=== PATIENT | male | born 1950 | race Two or more races ===

== ENCOUNTER 2016-12-22 08:35 | Day surgery (SDC) | payer MEDICARE, BC ==
[~2016-12-22] VITALS: Ht 165.1 cm; Wt 68.1 kg
[2016-12-22] VITALS (9 sets, daily range): BP systolic 92–146; BP diastolic 57–85
[~2016-12-22 08:35] MED LIST: ATORVASTATIN CA10 MG ORAL; LR 1000ml 1,000 ML IVLG SCH; MAALOX ADVANCE770 ML PO
[2016-12-22] MEDS ORDERED: SINEMET 25/1001 EA ORAL (09:18)
--- NOTE | 2016-12-22 09:38 | Short Stay Surgery H&P ---
History of Present Illness History of Present Illness Chief Complaint Abdominal pains and GERDS and screening colon HPI Michael Charles is a 66 year old male who was admitted on for Abdominal Pain/ screening colon Patient History Allergies: Coded Allergies: No Known Allergies (Unverified , 12/22/16) PAST MEDICAL HISTORY: (1) Hyperlipidemia (2) Colon polyp (3) Hemorrhoid Past Surgeries: Social History: Medication History Scheduled Atorvastatin Calcium* (Lipitor*), 10 MG ORAL BEDTIME, (Reported) Levodopa/Carbidopa (Carbidopa-Levodopa 25-100 Tab), 1 TAB ORAL DAILY, (Reported) Discontinued Medications Mag Hydrox/Al Hydrox/Simeth (Maalox Advanced Suspension), 770 ML PO, (Reported) Discontinued Reason: Pt stopped taking med Review of Systems Cardiovascular: Reports: no symptoms Respiratory: Reports: no symptoms Skeletal: Reports: no symptoms Gastrointestinal: Reports: gastro esophageal reflux disease Genitourinary: Reports: no symptoms Neurologic: Reports: other Endocrine: Reports: no symptoms Hematologic: Reports: no symptoms Physical Exam Vital Signs Last Vital Signs Date Time Temp Pulse Resp B/P (MAP) Pulse Ox O2 Delivery O2 Flow Rate FiO2 12/22/16 09:13 98.2 74 17 146/83 98 Room Air Skin: normal HENT: normal Heart: normal Lungs: normal Abdomen: abnormal Extremities: normal Genitourinary: normal Plan Plan of Care Upper and lower GI endoscopies Preop Interventions None. Summary of Findings See the reports Final Diagnosis: Attestation Are the patient's medical conditions optimized for surgery? Attestation Response: yes JETT PAYTON Dec 22, 2016 09:38
--- NOTE | 2016-12-22 09:39 | Pre-Procedure Note/Attestation ---
Pre-Procedure Note/Attestation Complete Prior to Procedure Planned Procedure: left Procedure Narrative: Endoscopic examination of the upper and lower GI tract Indications for Procedure Pre-Operative Diagnosis: R/O Colon cancer-polyps/Gastritis/peptic ulcer Attestation I attest that I discussed the nature of the procedure; its benefits; risks and complications; and alternatives (and the risks and benefits of such alternatives ), prior to the procedure, with the patient (or the patient's legal ambulatory services representative). I attest that, if there was a reasonable possibility of needing a blood transfusion, the patient (or the patient's legal ambulatory services representative) was given the [place] Department [facility] Services standardized written summary, pursuant to the [place] Blood Safety Act ([place] Health and Safety Code # 1645, as amended). I attest that I re-evaluated the patient just prior to the surgery and that there has been no change in the patient's H&P, except as documented below: TATA,SAID Dec 22, 2016 09:39
--- NOTE | 2016-12-22 09:39 | Pre-Procedure Note/Attestation ---
Pre-Procedure Note/Attestation Complete Prior to Procedure Planned Procedure: left Procedure Narrative: Endoscopic examination of the upper and lower GI tract Indications for Procedure Pre-Operative Diagnosis: R/O Colon cancer-polyps/Gastritis/peptic ulcer Attestation I attest that I discussed the nature of the procedure; its benefits; risks and complications; and alternatives (and the risks and benefits of such alternatives ), prior to the procedure, with the patient (or the patient's legal corporate representative). I attest that, if there was a reasonable possibility of needing a blood transfusion, the patient (or the patient's legal corporate representative) was given the [place] Department [facility] standardized written summary, pursuant to the [place] Blood Safety Act ([place] Health and Safety Code # 1645, as amended). I attest that I re-evaluated the patient just prior to the surgery and that there has been no change in the patient's H&P, except as documented below: TATA,SAID Dec 22, 2016 09:39
--- NOTE | 2016-12-22 09:39 | Pre-Procedure Note/Attestation ---
Pre-Procedure Note/Attestation Complete Prior to Procedure Planned Procedure: left Procedure Narrative: Endoscopic examination of the upper and lower GI tract Indications for Procedure Pre-Operative Diagnosis: R/O Colon cancer-polyps/Gastritis/peptic ulcer Attestation I attest that I discussed the nature of the procedure; its benefits; risks and complications; and alternatives (and the risks and benefits of such alternatives ), prior to the procedure, with the patient (or the patient's legal product support sales representative). I attest that, if there was a reasonable possibility of needing a blood transfusion, the patient (or the patient's legal product support sales representative) was given the [place] [facility] standardized written summary, pursuant to the [place] Blood Safety Act ([place] Health and Safety Code # 1645, as amended). I attest that I re-evaluated the patient just prior to the surgery and that there has been no change in the patient's H&P, except as documented below: TATA,SAID Dec 22, 2016 09:39
[2016-12-22] MEDS ORDERED: LR 1000ml 1,000 ML IVLG SCH (09:41)
[2016-12-22] MEDS ORDERED: Norco 7.5mg/325mg tab ORAL PRN (09:45)
[2016-12-22] MEDS ORDERED: Atropine Inj 1mg/10ml Syr IV PRN (09:45)
[2016-12-22] MEDS ORDERED: Ketorolac 30mg Inj IV PRN (09:45)
[2016-12-22] MEDS ORDERED: LORazepam Inj 2mg/ml 1ml IV PRN (09:45)
[2016-12-22] MEDS ORDERED: Ketorolac 60mg Inj IV PRN (09:45)
[2016-12-22] MEDS ORDERED: Hydromorphone 0.5mg/0.5ml inj IVP PRN (09:45)
[2016-12-22] MEDS ORDERED: DiphenhydrAMINE 50mg/ml Inj IVP PRN (09:45)
[2016-12-22] MEDS ORDERED: oxyCODONE HCL/Acetaminophen 5/325mg ORAL PRN (09:45)
[2016-12-22] MEDS ORDERED: Norco 5mg/325mg tab ORAL PRN (09:45)
[2016-12-22] MEDS ORDERED: Midazolam 2mg/2ml Inj IVP PRN (09:45)
[2016-12-22] MEDS ORDERED: Metoclopramide 10mg/2ml Inj IVP PRN (09:45)
[2016-12-22] MEDS ORDERED: fentaNYL 100 mcg/2 mL IV PRN (09:45)
--- NOTE | 2016-12-22 09:58 | Anethesia Preoperative Eval ---
Anesthesia Pre-op PMH/ROS General Date of Evaluation: Dec 22, 2016 Time of Evaluation: 09:42 Anesthesiologist: Ela ASA Score: ASA 3 Mallampati Score Class I : Soft palate, uvula, fauces, pillars visible Class II: Soft palate, uvula, fauces visible Class III: Soft palate, base of uvula visible Class IV: Only hard plate visible Mallampati Classification: Class II Surgeon: Rob Diagnosis: Abd Pain Surgical Procedure: EGD/ Colonoscopy Anesthesia History: none Family History: no anesthesia problems Allergies: Coded Allergies: No Known Allergies (Unverified , 12/22/16) Medications: see eMAR Past Medical History Cardiovascular: Reports: HTN, other - HL Pulmonary: Reports: THAD Gastrointestinal/Genitourinary: Reports: GERD, other - Gasric Ulcer Neurologic/Psychiatric: Reports: other - Parkinsons Anesthesia Pre-op Phys. Exam Physician Exam Last Vital Signs Date Time Temp Pulse Resp B/P (MAP) Pulse Ox O2 Delivery O2 Flow Rate FiO2 12/22/16 09:13 98.2 74 17 146/83 98 Room Air Constitutional: NAD Neurologic: CN 2-12 intact Cardiovascular: RRR Respiratory: CTA Gastrointestinal: S/NT/ND Airway Exam Mallampati Score: Class II MO: limited ROM: limited Teeth: missing, intact Anesthesia Pre-op A/P Risk Assessment & Plan Assessment: ASA 3 Plan: GA Status Change Before Surgery: Vlad Solomon MD Dec 22, 2016 09:58
[2016-12-22] MEDS ORDERED: Propofol 200mg/20ml IV ONE (10:00)
[2016-12-22] MEDS ORDERED: Lidocaine 1% MPF 10mg/ml 5ml ONE (10:00)
[2016-12-22] MEDS ORDERED: Alfentanil 2ml Inj ONE (10:00)
[2016-12-22] MEDS ORDERED: Midazolam 2mg/2ml Inj ONE (10:00)
[2016-12-22] MEDS ORDERED: LR 1000ml ONE (10:00)
--- NOTE | 2016-12-22 10:00 | Immediate Post-Op Evaluation ---
Immediate Post-Op Evalulation Immediate Post-Op Evalulation Procedure: EGD/Colonoscopy Date of Evaluation: Dec 22, 2016 Time of Evaluation: 10:28 IV Fluids: 300 LR Blood Products: 0 Estimated Blood Loss: 1 Urinary Output: 0 Blood Pressure Systolic: 92 Blood Pressure Diastolic: 57 Pulse Rate: 56 Respiratory Rate: 16 O2 Sat by Pulse Oximetry: 99 Temperature (Fahrenheit): 97.1 Pain Score (1-10): 1 Nausea: No Vomiting: No Complications 0 Patient Status: awake, reacts, none Hydration Status: adequate Vlad Mahmood MD Dec 22, 2016 10:00
--- NOTE | 2016-12-22 10:01 | 48 Hour Post Anesthesia Eval ---
Post Anesthesia Evaluation Procedure: EGD/Colonoscopy Date of Evaluation: Dec 22, 2016 Time of Evaluation: 12:43 Blood Pressure Systolic: 143 0: 84 Pulse Rate: 71 Respiratory Rate: 18 Temperature (Fahrenheit): 98.2 O2 Sat by Pulse Oximetry: 99 Airway: patent Nausea: No Vomiting: No Pain Intensity: 1 Hydration Status: adequate Cardiopulmonary Status: Stable Mental Status/LOC: patient returned to baseline Follow-up Care/Observations: 0 Post-Anesthesia Complications: 0 Follow-up care needed: ready to discharge Vlad Mahmood MD Dec 22, 2016 10:01
--- NOTE | 2016-12-22 10:04 | Endoscopy Procedure Note ---
Endoscopy Procedure Note Indication for Procedure: Abdominal pains and history of colon polyps Procedures Performed: EGD - Completely Normal Upper GI endoscopy, random gastric biopsy done., colonoscopy - Minimal internal hemorrhoids othewise completely normal total colonoscopy. Specimen: yes Pt Tolerated Procedure Well: Yes Estimated Blood Loss: none Anesthesiologist: Dr. Cornelius Anesthesia: moderate sedation Medication Given: see anesthesia record Implant(s) used?: No 50 yrs or older w/o bx or poly: Yes 10yrs. F/U not recommended: Yes Med reason:<3 yrs.: System Reason:<3 yrs.: Last colonoscopy >= to 3yrs: Yes JETT PAYTON Dec 22, 2016 10:04
--- NOTE | 2016-12-22 10:06 | Discharge Instructions ---
Discharge Instructions Discharge Instructions Follow up with: See the docotor in office after two weeks. For Congestive Heart Failure Reminder Report to your physician any weight gain of 5 pounds or more in one week. JETT PAYTON Dec 22, 2016 10:06
--- NOTE | 2016-12-22 19:30 | Procedure Note ---
DATE OF PROCEDURE: 12/22/2016 SURGEON: Braydon Rivas M.D. PROCEDURE: Esophagogastroduodenoscopy with biopsy. PREOPERATIVE DIAGNOSES: 1. Abdominal pain. 2. History of gastroesophageal reflux. POSTOPERATIVE DIAGNOSIS: Completely normal upper gastrointestinal endoscopy. Biopsy was taken per random from gastric body. MEDICATIONS USED: Per Vlad Mahmood M.D., anesthesiologist. INSTRUMENT: GIF Olympus upper GI video endoscope. DESCRIPTION OF PROCEDURE: The patient, after arriving in endoscopy unit, was told about risks and benefits of the procedure, which he accepted and signed the informed consent. He was then put on the left lateral decubitus position. After adequate IV sedation, the scope was gently passed through the cricopharyngeal area, was lodged into the upper esophagus, and gradually advanced towards gastroesophageal junction. The entire length of the esophagus looked normal. There was no any evidence of inflammatory process, ulceration, etc. GE junction also looked completely normal. No Robbins's or hiatal hernia. The scope at this time was introduced into the gastric cavity and it was distended with insufflation of air. Gradually, the areas of the fundus and the body and the antrum were examined, which revealed complete normal gastric lining without any evidence of tumors, polyps, ulceration, etc. One random biopsy from gastric body obtained and subsequently, scope was passed through the pylorus. First and second portions of duodenum were also found to be completely normal. At this time, the scope was pulled back into the stomach. A retroflexion maneuver was applied. The area of the gastroesophageal junction was examined, which looked normal. Finally, the procedure was terminated. The patient tolerated the procedure well. Braydon Rivas M.D. DR: DALIA JOB#: [id number] CC:
--- NOTE | 2016-12-22 21:15 | Procedure Note ---
DATE OF PROCEDURE: 12/22/2016 SURGEON: Braydon Rivas M.D. PROCEDURE: Total colonoscopy. PREOPERATIVE DIAGNOSES: History of colon polyp and screening colonoscopy. POSTOPERATIVE DIAGNOSIS: Minimal internal hemorrhoid, otherwise, complete normal total colonoscopy up to the base of the cecum as examined. MEDICATIONS USED: Per Vlad Mahmood M.D., anesthesiologist. INSTRUMENT: GIF Olympus video colonoscope. DESCRIPTION OF PROCEDURE: The patient, after arriving in endoscopy unit, was told about risks and benefits of the procedure, which he accepted and signed informed consent. He was then put on the left lateral decubitus position. After adequate IV sedation, the scope was gently passed through the anal area and a retroflexion maneuver, which was applied here revealed evidence of minimal internal hemorrhoids of no great significance. They were not friable. At this time, the scope was passed into the rectosigmoid area, gradually into descending colon, splenic flexure, transverse colon, hepatic flexure, finally was guided into the right colon all the way to the base of the cecum. All these areas remained completely normal without any pathological findings such as tumor, polyps, inflammatory process, ulcers, etc. The colon cleanup was adequate. At this time, the scope was gradually pulled out within 7 minutes and a total re-examination of the colon did not reveal any other abnormalities. The patient finally tolerated the procedure well and left the endoscopy room in a good condition. Braydon Rivas M.D. DR: DALIA JOB#: [id number] CC:
== END 2016-12-22 11:30 | disposition home or self-care (01) ==
LOC: GAS 08:35
DX: Z12.11 Encounter for screening for malignant neoplasm of colon (principal); Z86.010 Personal history of colon polyps; K64.8 Other hemorrhoids; K21.9 Gastro-esophageal reflux disease without esophagitis; E78.5 Hyperlipidemia, unspecified; I10 Essential (primary) hypertension; G20 Parkinson's disease; G47.33 Obstructive sleep apnea (adult) (pediatric); K29.50 Unspecified chronic gastritis without bleeding
CPT/HCPCS: 43239; 45378; J2250; J2704; J3490; J7120; 94003; 94150

== ENCOUNTER 2018-06-24 07:38 | Day surgery (SDC) | payer MEDICARE, BC ==
[2018-06-24] VITALS (10 sets, daily range): BP systolic 108–158; BP diastolic 70–91
[~2018-06-24] VITALS: Ht 167.6 cm; Wt 63.5 kg
--- NOTE | 2018-06-24 06:44 | Anethesia Preoperative Eval ---
Anesthesia Pre-op PMH/ROS General Date of Evaluation: June 24, 2018 Time of Evaluation: 06:41 Anesthesiologist: lauren ASA Score: ASA 3 Mallampati Score Class I : Soft palate, uvula, fauces, pillars visible Class II: Soft palate, uvula, fauces visible Class III: Soft palate, base of uvula visible Class IV: Only hard plate visible Mallampati Classification: Class II Surgeon: kristyn Diagnosis: gerd, abdominal pain Surgical Procedure: egd/colonoscopy Anesthesia History: none Social History: current smoker Family History: no anesthesia problems Allergies: Coded Allergies: No Known Allergies (Unverified , 12/22/16) Medications: see eMAR Patient NPO?: Yes Past Medical History Cardiovascular: Reports: other - hyperlipidemia, hypercholesterolemia Pulmonary: Reports: THAD Gastrointestinal/Genitourinary: Reports: GERD, other - colon polyps, hemorrhoids Neurologic/Psychiatric: Reports: depression/anxiety, other - parkinson's dz HEENT: Reports: other - decreased visual acuity Anesthesia Pre-op Phys. Exam Physician Exam Last Vital Signs Date Time Temp Pulse Resp B/P (MAP) Pulse Ox O2 Delivery O2 Flow Rate FiO2 06/24/18 08:25 Room Air 06/24/18 08:23 97.9 66 18 158/89 98 Constitutional: NAD Neurologic: CN 2-12 intact Cardiovascular: RRR Respiratory: CTA Gastrointestinal: S/NT/ND Airway Exam Mallampati Score: Class II MO: limited Neck: flexible TMD: 2fb ROM: limited Anesthesia Pre-op A/P Risk Assessment & Plan Assessment: asa3 Plan: mac Status Change Before Surgery: No Pre-Antibiotics Drug: Robina Pascual MD June 24, 2018 06:44
[~2018-06-24 07:38] MED LIST changes: +Atropine Inj 1mg/10ml Syr IV PRN; +DiphenhydrAMINE 50mg/ml Inj IVP PRN; -LR 1000ml 1,000 ML IVLG SCH; +Midazolam 2mg/2ml Inj IVP PRN; +SINEMET 25/1001 EA ORAL; +fentaNYL 100 mcg/2 mL IV PRN
--- NOTE | 2018-06-24 08:58 | Short Stay Surgery H&P ---
History of Present Illness History of Present Illness Chief Complaint High CEA, weight loss and screening colonoscopy HPI Michael Charles is a 68 year old male who was admitted on for Gerd,Abdominal Pain/weight loss and elevated CEA Patient History Allergies: Coded Allergies: No Known Allergies (Unverified , 12/22/16) PAST MEDICAL HISTORY: (1) Parkinson disease (2) Hyperlipidemia (3) Prostatic hyperplasia Medication History Scheduled Atorvastatin Calcium* (Lipitor*), 10 MG ORAL BEDTIME, (Reported) Levodopa/Carbidopa (Carbidopa-Levodopa 25-100 Tab), 1 TAB ORAL DAILY, (Reported) Review of Systems Cardiovascular: Reports: no symptoms Respiratory: Reports: no symptoms Skeletal: Reports: no symptoms Gastrointestinal: Reports: other Genitourinary: Reports: BPH Neurologic: Reports: other Endocrine: Reports: no symptoms Hematologic: Reports: no symptoms Physical Exam Vital Signs Last Vital Signs Date Time Temp Pulse Resp B/P (MAP) Pulse Ox O2 Delivery O2 Flow Rate FiO2 06/24/18 08:25 Room Air 06/24/18 08:23 97.9 66 18 158/89 98 Skin: normal HENT: normal Heart: normal Lungs: normal Abdomen: normal Extremities: normal Plan Plan of Care Upper and lower GI endoscopy Preop Interventions None. Summary of Findings See the reports Attestation Are the patient's medical conditions optimized for surgery? Attestation Response: yes Braydon Rivas MD June 24, 2018 08:58
--- NOTE | 2018-06-24 08:59 | Pre-Procedure Note/Attestation ---
Pre-Procedure Note/Attestation Complete Prior to Procedure Planned Procedure: left Procedure Narrative: Examination of the uppr and lower GI tract. Indications for Procedure Pre-Operative Diagnosis: R/O GI cancer/polyps Attestation I attest that I discussed the nature of the procedure; its benefits; risks and complications; and alternatives (and the risks and benefits of such alternatives ), prior to the procedure, with the patient (or the patient's legal customer relations representative). I attest that, if there was a reasonable possibility of needing a blood transfusion, the patient (or the patient's legal customer relations representative) was given the [facility] standardized written summary, pursuant to the [place] Blood Safety Act ([place] Health and Safety Code # 1645, as amended). I attest that I re-evaluated the patient just prior to the surgery and that there has been no change in the patient's H&P, except as documented below: Braydon Rivas MD June 24, 2018 08:59
[2018-06-24] MEDS ORDERED: Propofol 200mg/20ml IV ONE (09:00)
[2018-06-24] MEDS ORDERED: Lidocaine 1% MPF 10mg/ml 5ml ONE (09:00)
[2018-06-24] MEDS ORDERED: LR 1000ml ONE (09:00)
[2018-06-24] MEDS ORDERED: Atropine Sulfate 0.4mg/ml inj ONE (09:00)
--- NOTE | 2018-06-24 09:23 | Endoscopy Procedure Note ---
Endoscopy Procedure Note General Indication for Procedure: Elevated CEA/weight loss/screening colon Procedures Performed: EGD - Completely normal Upper GI endoscopy. Biopsy was taken per random from gastric body., colonoscopy - Minimal internal hemorrhoid, otherwise normal total colonoscopy. Pt Tolerated Procedure Well: Yes Estimated Blood Loss: none Anesthesia Anesthesiologist: Dr. Castillo Anesthesia: moderate sedation Medications Medication Given: see anesthesia record Inserted Devices Implant(s) used?: No Quality Quality of Bowel Preparation: Fair Did scope reach the cecum?: Yes Was there any complications?: No GI Core Measures 50 yrs or older w/o bx or poly: Yes 10yrs. F/U not recommended: Yes If not recommended, why?: 10 yrs. F/U needed: Yes 18 years or older w/prev. colo: No <3yrs. since last colonoscopy: Yes Med reason:<3 yrs.: System Reason:<3 yrs.: Last colonoscopy >= to 3yrs: No Braydon Rivas MD June 24, 2018 09:23
--- NOTE | 2018-06-24 09:24 | Discharge Instructions ---
Discharge Instructions Discharge Instructions Follow up with: Visit the doctor after two weeks in the office For Congestive Heart Failure Reminder Report to your physician any weight gain of 5 pounds or more in one week. Braydon Rivas MD June 24, 2018 09:24
--- NOTE | 2018-06-24 11:09 | Immediate Post-Op Evaluation ---
Immediate Post-Op Evalulation Immediate Post-Op Evalulation Procedure: egd/colonoscopy Date of Evaluation: June 24, 2018 Time of Evaluation: 09:44 IV Fluids: 200ml lr Blood Products: none Estimated Blood Loss: negligible Blood Pressure Systolic: 148 Blood Pressure Diastolic: 71 Pulse Rate: 67 Respiratory Rate: 18 O2 Sat by Pulse Oximetry: 99 Temperature (Fahrenheit): 97.9 Pain Score (1-10): 0 Nausea: No Vomiting: No Complications none Patient Status: awake, reacts, patent Hydration Status: adequate Drug: Robina Pascual MD June 24, 2018 11:09
--- NOTE | 2018-06-24 11:10 | 48 Hour Post Anesthesia Eval ---
Post Anesthesia Evaluation Procedure: egd/colonoscopy Date of Evaluation: June 24, 2018 Time of Evaluation: 09:46 Blood Pressure Systolic: 125 0: 80 Pulse Rate: 69 Respiratory Rate: 18 Temperature (Fahrenheit): 97.9 O2 Sat by Pulse Oximetry: 99 Airway: patent Nausea: No Vomiting: No Pain Intensity: 0 Hydration Status: adequate Cardiopulmonary Status: stable Mental Status/LOC: patient returned to baseline Post-Anesthesia Complications: none Follow-up care needed: N/A Robina Castillo MD June 24, 2018 11:10
--- NOTE | 2018-06-24 16:15 | Procedure Note ---
DATE OF PROCEDURE: 06/24/2018 SURGEON: Braydon Rivas M.D. PROCEDURE: Esophagogastroduodenoscopy with biopsy. PREOPERATIVE DIAGNOSES: 1. Abdominal pain. 2. Weight loss. 3. High CEA. POSTOPERATIVE DIAGNOSIS: Completely normal upper GI endoscopy. Biopsy was taken per random from gastric body. MEDICATION USED: Per Dr. Blue, anesthesiologist. INSTRUMENT: GIF Olympus upper GI video endoscope. DESCRIPTION OF PROCEDURE: The patient after arriving at the endoscopy unit, was told about risks and benefits of the procedure which he accepted and signed informed consent. He was then put on the left lateral decubitus position. After adequate IV sedation, the scope was gently passed through the cricopharyngeal area, was lodged into the upper esophagus and gradually advanced towards gastroesophageal junction. The entire length of the esophagus looked normal. No evidence of any inflammatory process, ulceration, tumors, polyps, etc. was found. GE junction also looked normal without any abnormalities. No hiatal hernia or Robbins's. At this time, the scope was advanced into the stomach, gastric cavity was distended with insufflation of air. Gradually, the areas of the fundus and the body and the antrum were examined which looked completely normal. There was no any tumor, polyps, ulcers, etc. A retroflexion maneuver was also applied. The area of the gastroesophageal junction was examined, which again was within normal limits. At this time, one random biopsy from gastric body obtained and subsequently scope was passed through the pylorus. First and second portion of duodenum were examined, they also looked completely normal without any abnormalities or tumors etc. At this time, the scope was pulled out and the procedure was terminated. The patient tolerated the procedure well. Braydon Rivas M.D. DR: Precious JOB#: [id number] CC:
--- NOTE | 2018-06-24 16:15 | Procedure Note ---
DATE OF PROCEDURE: 06/24/2018 SURGEON: Braydon Rivas M.D. PROCEDURE: Total colonoscopy. PREOPERATIVE DIAGNOSIS: Elevated CEA and weight loss, rule out underlying colon cancer/screening colon. POSTOPERATIVE DIAGNOSIS: Minimal internal hemorrhoids, otherwise completely normal total colonoscopy up to the base of the cecum as examined. MEDICATION USED: Per Dr. Blue, anesthesiologist. INSTRUMENT: GIF Olympus video colonoscope. DESCRIPTION OF PROCEDURE: The patient after arriving endoscopy unit, was told about risks and benefits of the procedure which he accepted and signed informed consent. He was then put on the left lateral decubitus position and at this time, the scope was gradually passed through the anal area. A retroflexion maneuver was applied which revealed only very minimal internal hemorrhoids of no great significance and it was not friable. The rest of the rectum looked completely normal. At this time, the scope was gradually passed through the rectosigmoid area, was introduced into the descending colon all the way to the splenic flexure and these areas were completely normal. There was however evidence of seeds of the fruits that the applicant had taken which made the colonic preparation somewhat fair, but still it had to be irrigated and underlying mucosa looked completely normal. Finally, after reaching to the splenic flexure, the scope was advanced into the transverse colon, hepatic flexure, right colon all the way to the base of the cecum. All these areas also remained to be completely normal and there was no any pathology of any kind including tumors or polyps found. After reaching to the base of the cecum within 7 minutes, the scope was gradually pulled out and re-evaluation of the colon did not add any abnormalities. The patient tolerated the procedure well and left the endoscopy room in a good condition. Braydon Rivas M.D. DR: Precious JOB#: [id number] CC:
== END 2018-06-24 10:45 | disposition home or self-care (01) ==
LOC: GAS 07:38
DX: R63.4 Abnormal weight loss (principal); R97.0 Elevated carcinoembryonic antigen [CEA]; K64.8 Other hemorrhoids; G20 Parkinson's disease; E78.5 Hyperlipidemia, unspecified; Z79.899 Other long term (current) drug therapy; K21.9 Gastro-esophageal reflux disease without esophagitis; E78.00 Pure hypercholesterolemia, unspecified; G47.33 Obstructive sleep apnea (adult) (pediatric); F32.9 Major depressive disorder, single episode, unspecified; F41.9 Anxiety disorder, unspecified; Z86.010 Personal history of colon polyps; R10.9 Unspecified abdominal pain
CPT/HCPCS: 43239; 45378; J0461; J2704; 94003; 94150